=== PATIENT | female | born 1990 | race Caucasian/White ===

== ENCOUNTER 2023-07-08 15:51 | Outpatient (CLI) | payer MEDICAID, SELFPAY ==
[2023-07-08 16:21] LABS: FREE T4 0.66 ng/dL (0.76-1.46)
== END 2023-07-08 15:52 | disposition home or self-care (01) ==
LOC: LBO 15:52
PROVIDERS: Visit Provider Nurse Practitioner Obstetrics & Gynecology
DX: E03.9 Hypothyroidism, unspecified (principal)
CPT/HCPCS: 36415; 84439; 84443

== ENCOUNTER 2023-09-04 16:33 | Outpatient (CLI) | payer MEDICAID, SELFPAY ==
[2023-09-04 17:38] LABS: FREE T4 0.94 ng/dL (0.76-1.46)
== END 2023-09-04 16:34 | disposition home or self-care (01) ==
LOC: LBO 16:34
PROVIDERS: Visit Provider Internal Medicine Endocrinology, Diabetes & Metabolism
DX: E03.9 Hypothyroidism, unspecified (principal)
CPT/HCPCS: 36415; 84439; 84443

== ENCOUNTER 2023-11-18 16:25 | Outpatient (CLI) | payer MEDICAID, SELFPAY ==
[2023-11-18 09:42] LABS: TSH (W/Ref FT4) 0.84 uIU/mL (0.36-3.74)
== END 2023-11-18 16:26 | disposition home or self-care (01) ==
LOC: LBO 16:25
PROVIDERS: Visit Provider Nurse Practitioner Obstetrics & Gynecology
DX: R94.6 Abnormal results of thyroid function studies (principal)
CPT/HCPCS: 36415; 84443